=== PATIENT | male | born 1960 | race Caucasian/White ===

== ENCOUNTER → 2017-10-15 | Outpatient (CLI) | payer OTHER ==
[~2017-10-15] MED LIST: DOXY-228 PO; FLUT16SP20 NS; LORA10CA3 PO; PRED-1 PO
--- NOTE | 2017-10-15 13:33 | RADIOLOGY IMAGING REPORT ---
FACILITY: [facility] PATIENT NAME: Cole Steve : 1960 MR: [id number] V: [id number] EXAM DATE: ORDERING PHYSICIAN: ADRIÁN SANTOYO TECHNOLOGIST: Location: [facility] [place] Patient: Cole Steve : 1960 Visit/Account:[id number] Date of Sevice: 10/15/2017 KNEE 3 VIEW LEFT Indication: Left knee pain for one month. Comparison: None. Findings: Medial and lateral compartments are smooth. Mineralization is normal. There is no effusio n. IMPRESSION: Normal left knee radiograph. Report Dictated By: Luciano Mathew at 10/15/2017 1:29 PM Report E-Signed By: Luciano Mathew at 10/15/2017 1:30 PM WSN:[email or web address]
== END ==
LOC: RAD 10:50
PROVIDERS: ATTEND Family Medicine
DX: M25.562 Pain in left knee (principal)

== ENCOUNTER → 2017-11-24 | Outpatient (CLI) | payer OTHER ==
--- NOTE | 2017-11-24 08:14 | EKG ---
FACILITY: PATIENT NAME: MARY SHELTON : [id number] MR: [id number] V: [id number] EXAM DATE: ORDERING PHYSICIAN: BRIANNA MCGRATH TECHNOLOGIST: MAXWELL Palmer Reason : PREOP-KNEE Blood Pressure : / mmHG Vent. Rate : 056 BPM Atrial Rate : 056 BPM P-R Int : 192 ms QRS Dur : 118 ms QT Int : 424 ms P-R-T Axes : 024 028 018 degrees QTc Int : 409 ms Sinus bradycardia Borderline first degree AV block Nonspecific interventricular conduction delay Borderline ECG No previous ECGs available Confirmed by JEREMIAH DINERO ([id number]) on 11/24/2017 5:24:12 PM Referred By: Confirmed By:JEREMIAH DINERO
[2017-11-24 08:16] LABS: PLATELET COUNT, AUTOMATED 199 K/uL (150-450)
== END ==
LOC: LAB 07:53
PROVIDERS: ATTEND Anesthesiology
DX: Z01.812 Encounter for preprocedural laboratory examination (principal); Z01.810 Encounter for preprocedural cardiovascular examination; I44.0 Atrioventricular block, first degree; R00.1 Bradycardia, unspecified; E03.9 Hypothyroidism, unspecified; S83.242A Other tear of medial meniscus, current injury, left knee, initial encounter
CPT/HCPCS: 36415; 82040; 82247; 82310; 82374; 82435; 82565; 82947; 84075; 84132; 84155; 84295; 84443; 84450; 84460; 84520; 85025; 93005

== ENCOUNTER 2019-03-18 08:12 | Emergency (ER) | payer OTHER ==
--- NOTE | 2019-03-18 08:21 | ER Report ---
History and Physical Time Seen By MD: 08:13 HPI/ROS CHIEF COMPLAINT: Abdominal pain worsening last night HISTORY OF PRESENT ILLNESS: 58-year-old male presents with the abdominal pain flareup which has been dull and achy and worse over the last 2 weeks. Last night it was keeping him awake every time she changed positions. He will 5 times. Pilar ent is had this in the past and it is not associated with food. Over the years he is taking care of her with ibuprofen but not recently. Patient thinks he has a liver enlarged l with a flareup. No increase in belching or flatus. Family history of gallbladder disease. Patient has pain on the right side lower ribs that also goes to the back. He can push on the rib cage and it hurts but it feels deep to that area. REVIEW OF SYSTEMS: Constitutional: No fever, no chills. Eyes: No discharge. ENT: No sore throat. Cardiovascular: No chest pain, no palpitations. Respiratory: No cough, no shortness of breath. Gastrointestinal: Abdominal pain epigastric and right upper quadrant. It appears to be more right lateral. No vomiting, no bloating with belching or flatus. Pain associated with foods. Patient has not treated this with medications except for in the distant past which was ibuprofen. Genitourinary: No hematuria. Musculoskeletal: No back pain. Skin: No rashes. Neurological: No headache. Remainder of the 14 system rev: Yes Allergies: Coded Allergies: fexofenadine (Verified Allergy, Severe, TONGUE SWELLING, 08/21/13) Sulfa (Sulfonamide Antibiotics) (Verified Allergy, Mild, HIVES, 08/21/13) Home Meds Reported Medications Hydrochlorothiazide (HYDROCHLOROTHIAZIDE) 25 Mg Tablet, 2 TAB PO QDAY, TAB 03/18/19 Metoprolol Succinate (METOPROLOL SUCCINATE) 50 Mg Tab.er.24h, 1 TAB PO QDAY, TAB 03/18/19 Levothyroxine Sodium (LEVOTHYROXINE SODIUM) 100 Mcg Tablet, 200 MCG PO QDAY, TAB 03/18/19 Discontinued Reported Medications Fluticasone Propionate (FLONASE) 16 Gm G[place].susp, 1 SPRAY NS BID 01/03/14 Past Medical/Surgical History Past medical history illnesses: Hypertension, obstructive sleep apnea on CPAP, overweight, hypothyroidism Surgery: Right cataract with implant, right scapular fracture repair, left surgical for cheek repair, L4 discectomy. Reviewed Nurses Notes: Yes Old Medical Records Reviewed: Yes Hx Smoking: No Hx Substance Use Disorder: No Hx Alcohol Use: No Constitutional Vital Sign - Last 24 Hours 03/18/19 03/18/19 03/18/19 03/18/19 08:12 08:14 08:17 08:30 Temp 97.0 Pulse 55 55 Resp 16 B/P (MAP) 141/83 (102) 135/91 (106) Pulse Ox 94 O2 Delivery Room Air 03/18/19 03/18/19 03/18/19 03/18/19 08:32 08:52 09:00 09:12 Pulse 54 54 57 B/P (MAP) 126/84 (98) Pulse Ox 95 91 94 03/18/19 03/18/19 03/18/19 03/18/19 09:30 09:32 09:52 09:55 Pulse 51 54 54 B/P (MAP) 125/80 (95) Pulse Ox 93 93 94 03/18/19 03/18/19 03/18/19 03/18/19 10:15 10:30 10:35 10:55 Pulse 51 53 55 B/P (MAP) 135/93 (107) Pulse Ox 95 94 94 Physical Exam General Appearance: [The patient is alert, has no immediate need for airway protection and no current signs of toxicity.] [ ] Eyes: Pupils equal and round no injection. Cataract surgery on the right noted Respiratory: Chest is non tender, lungs are clear to auscultation. Cardiac: regular rate and rhythm [ ] Gastrointestinal: Abdomen is soft and non tender, no masses, bowel sounds normal. Musculoskeletal: Right anterolateral ribs going laterally and inferior with some tenderness. No rash or swelling or abrasion. This is in the right area and similar but not chronic pain patient is noting. Neck: Neck is supple and non tender. Extremities have full range of motion and are non tender. Skin: No rashes or lesions. [ ] DIFFERENTIAL DIAGNOSIS: After history and physical exam differential diagnosis was considered for abdominal pain including but not limited to appendicitis, cholecystitis, gastritis and urinary tract infection. Medical Decision Making Data Points Result Diagram: 03/18/19 0816 03/18/19 0816 Laboratory Hematology Test 03/18/19 08:16 White Blood Count 5.8 k/uL (4.5-11.0) Red Blood Count 5.32 M/uL (4.00-5.60) Hemoglobin 17.7 g/dL (14.0-18.0) Hematocrit 50.1 % (42.0-52.0) Mean Corpuscular Volume 94.2 fL (80.0-96.0) Mean Corpuscular Hemoglobin 33.3 pg (26.0-33.0) H Mean Corpuscular Hemoglobin Concent 35.4 g/dL (32.0-36.0) Red Cell Distribution Width 13.4 % (11.5-14.5) Platelet Count 198 K/uL (150-450) Mean Platelet Volume 8.1 fL (7.2-11.1) Neutrophils (%) (Auto) 52.3 % (39.4-72.5) Lymphocytes (%) (Auto) 33.8 % (17.6-49.6) Monocytes (%) (Auto) 9.2 % (4.1-12.4) Eosinophils (%) (Auto) 3.5 % (0.4-6.7) Basophils (%) (Auto) 1.2 % (0.3-1.4) Nucleated RBC Relative Count (auto) 0.2 /100WBC Neutrophils # (Auto) 3.0 K/uL (2.0-7.4) Lymphocytes # (Auto) 1.9 K/uL (1.3-3.6) Monocytes # (Auto) 0.5 K/uL (0.3-1.0) Eosinophils # (Auto) 0.2 K/uL (0.0-0.5) Basophils # (Auto) 0.1 K/uL (0.0-0.1) Nucleated RBC Absolute Count (auto) 0.01 K/uL Chemistry Test 03/18/19 08:16 Sodium Level 139 mmol/L (137-145) Potassium Level 3.3 mmol/L (3.5-5.0) Chloride Level 100 mmol/L (98-107) Carbon Dioxide Level 28 mmol/L (22-30) Blood Urea Nitrogen 16 mg/dl (9-21) Creatinine 1.10 mg/dl (0.66-1.25) Glomerular Filtration Rate Calc > 60.0 Random Glucose 136 mg/dl (75-110) Calcium Level 9.3 mg/dl (8.4-10.2) Total Bilirubin 1.5 mg/dl (0.2-1.3) Aspartate Amino Transf (AST/SGOT) 57 U/L (0-35) Alanine Aminotransferase (ALT/SGPT) 83 U/L (0-56) Alkaline Phosphatase 45 U/L (0-126) Total Protein 8.0 g/dl (6.3-8.2) Albumin 4.8 g/dl (3.5-5.0) Amylase Level 65 U/L (0-110) Lipase 209 U/L (23-300) ED Course/Re-evaluation ED Course Patient has right lower rib pain and right upper quadrant pain but only tenderness is on the ribs. He did not have any abdominal tenderness. Patient's blood sugars up and is discussed with him. Patient's potassium is slightly low and he is on hydrochlorothiazide and this was also discussed. His transaminases are elevated and he does drink alcohol especially wine but not in excess. He is overweight and I suspect patient has a fatty liver although this was not noted on the CT as he is noted to have a hemangioma. I suspect the pain is from the ribs and the reason she doesn't stomach his referral pain. He'll be sent for follow-up on his eye will kalemia and his elevated transaminases and his elevated blood sugar. Decision to Disposition Date: Mar 18, 2019 Decision to Disposition Time: 11:08 Depart Departure Latest Vital Signs Vital Signs Date Time Temp Pulse Resp B/P (MAP) Pulse Ox O2 Delivery O2 Flow Rate FiO2 03/18/19 10:55 55 94 03/18/19 10:30 135/93 (107) 03/18/19 08:17 97.0 16 Room Air Impression: Primary Impression: Abdominal pain Additional Impressions: Elevated transaminase level Hypokalemia Elevated blood sugar level Condition: Condition Unchanged Disposition: HOME OR SELF-CARE Referrals: ADRIÁN SANTOYO DO (PCP) Departure Forms: ER Transition Record, Medications Reconciliation, Patient Portal Information Patient Instructions: Abdominal Pain (ED), Diabetic Hyperglycemia (ED), Hypokalemia (ED) Additional Instructions: Follow-up with her PCP regarding your low potassium, her elevated blood sugar, intra-abdominal pain. Ibuprofen and ice to the area where asserting for abdominal pain at this time. Suggest high-protein low-carb diet for now and lots of fluids. Problem Qualifiers Primary Impression: Abdominal pain Abdominal location: right upper quadrant Qualified Codes: R10.11 - Right upper quadrant pain CONCEPCION EDWARDS MD Mar 18, 2019 08:21
[2019-03-18] MEDS ORDERED: HYDR-2966 PO (08:26)
[2019-03-18] MEDS ORDERED: LEVO-3 PO (08:26)
[2019-03-18] MEDS ORDERED: METO50TA19 PO (08:26)
[2019-03-18] MEDS ORDERED: IOPAMIDOL 76% 100 ML INFUS BTL 100 ML ONE (09:11)
[2019-03-18 09:20] LABS: PLATELET COUNT, AUTOMATED 198 K/uL (150-450)
[2019-03-18 10:30] VITALS: BP 135/93
--- NOTE | 2019-03-18 10:55 | RADIOLOGY IMAGING REPORT ---
FACILITY: [facility] - [place] PATIENT NAME: Cole Steve : 1960 MR: [id number] V: [id number] EXAM DATE: ORDERING PHYSICIAN: CONCEPCION EDWARDS TECHNOLOGIST: Location: [facility] [place] Patient: Cole Steve : 1960 Visit/Account:[id number] Date of Sevice: 03/18/2019 CT ABDOMEN PELVIS W/ CON HISTORY: Abdominal pain. TECHNIQUE: CT abdomen and pelvis with intravenous contrast. One of the following dose optimization techniques was utilized in the performance of this exam: Autom ated exposure control; adjustment of the mA and/or kV according to the patient's size; or use of an i terative reconstruction technique. Specific details can be referenced in the facility's radiology C T exam operational policy. CONTRAST: 75 mL Isovue-370 IV COMPARISON: None. FINDINGS: Visualized lung bases: Calcified bibasilar pulmonary nodules consistent with benign granulomas. Athe rosclerotic calcifications visualized coronary arteries. Hepatobiliary: 7.4 x 10.6 x 9.0 cm lesion posterior segment right hepatic lobe with peripheral nodul ar enhancement. Spleen: Negative. Adrenals: Negative. Pancreas: Negative. Kidneys/: Negative. GI: No obstruction, gross wall thickening or surrounding inflammation. Appendix if present not able to be visualized but no inflammatory changes in the region of cecal tip to otherwise suggest acute ap pendicitis. Vessels/spaces/nodes: A few small foci of calcific atherosclerosis. No adenopathy. No free fluid. No free gas. Bones/soft tissues: Degenerative changes visualized spine most pronounced at lumbosacral junction wh ere there are moderately severe. IMPRESSION: 1. No findings identified to explain patient's reported abdominal pain. 2. 7.4 x 10.6 x 9.0 cm right hepatic lesion most consistent with benign cavernous hemangioma. Report Dictated By: Lucien Benz MD at 03/18/2019 10:30 AM Report E-Signed By: Lucien Benz MD at 03/18/2019 10:48 AM WSN:[id number]
== END 2019-03-18 11:19 | disposition home or self-care (01) ==
LOC: ER 08:12
DX: R10.11 Right upper quadrant pain (principal); E87.6 Hypokalemia; R73.9 Hyperglycemia, unspecified; R74.0 Nonspecific elevation of levels of transaminase and lactic acid dehydrogenase [LDH]
CPT/HCPCS: 74177; 82150; 83690; 85025; 99284; Q9967; 82040; 82247; 82310; 82374; 82435; 82565; 82947; 84075; 84132; 84155; 84295; 84450; 84460; 84520